=== PATIENT | male | born 1965 | race Caucasian/White ===

== ENCOUNTER 2017-04-01 14:00 | Emergency (ER) | payer BC ==
[2017-04-01 15:54] VITALS: BP 160/101
--- NOTE | 2017-04-01 15:54 | UC ---
Ear Complaint HPI - HPI Summary HPI Summary: 52 year old patient with history of HIV presents with ear pain. Here w/ LEFT earache x2 days. Denies drainage. States it feels clogged, and feels better "when I chew gum". Also states "I've been hot and cold" when asked about fever/ chills. Taking tylenol prn w/ some pain relief. No recent swimming or travel or exposure to illness but daughter has bronchitis at this time and finished antibiotics. [ End ] - History of Current Complaint Chief Complaint: UCEar Stated Complaint: EAR PAIN Time Seen by Provider: 04/01/17 15:52 Hx Obtained From: Patient Onset/Duration: Gradual Onset Severity Initially: Moderate Associated Signs/Symptoms: Positive: Hearing Loss, URI Symptoms. Negative: Discharge, Foreign Body Sensation - Allergies/Home Medications Allergies/Adverse Reactions: Allergies Allergy/AdvReac Type Severity Reaction Status Date / Time Shellfish Allergy Allergy Anaphylatic Verified 04/01/17 15:38 Shock Morphine AdvReac Intermediate Vomiting Verified 04/01/17 15:38 Home Medications: Home Medications RX: Ymqgedodthvd-Usfjzvhhgb-Obpppk [Genvoya [id number] mg] 1 tab QPM [History Confirmed 04/01/17] RX: Mirtazapine TAB* [Remeron TAB*] 15 mg BEDTIME 04/01/17 [History Confirmed ] RX: QUEtiapine TAB* [Seroquel TAB*] 100 mg PO BEDTIME 04/01/17 [History Confirmed 04/01/17] RX: busPIRone TAB* [Buspar TAB*] 30 mg TID 04/01/17 [History Confirmed 04/01/17] RX: cloNIDine TAB* [Catapres 0.1 MG TAB*] 0.1 mg PO TID 04/01/17 [History Confirmed 04/01/17] PMH/Surg Hx/FS Hx/Imm Hx Previously Healthy: Yes Cardiovascular History: Hypertension Psychological History: Anxiety, Depression Other History Of: HIV - Surgical History Surgical History: Yes Surgery Procedure, Year, and Place: R shoulder repair - Family History Known Family History: Negative: Cardiac Disease - Social History Occupation: Employed Full-time - Professor at [employer] Psych Lives: With Family Alcohol Use: None Substance Use Type: None Smoking Status (MU): Never Smoked Tobacco - Immunization History Most Recent Influenza Vaccination: NONE 2016 Review of Systems ENT: Ear Ache All Other Systems Reviewed And Are Negative: Yes Physical Exam Triage Information Reviewed: Yes Appearance: Well-Appearing, No Pain Distress, Well-Nourished Vital Signs: Initial Vital Signs Temp 99.4 F 04/01/17 15:41 Pulse 87 04/01/17 15:41 Resp 16 04/01/17 15:41 BP 160/101 04/01/17 15:41 Pulse Ox 99 04/01/17 15:41 Vital Signs Reviewed: Yes Eye Exam: Normal ENT Exam: Normal ENT: Positive: TM bulging, TM dull Dental Exam: Normal Neck exam: Normal Neck: Positive: 1 Respiratory Exam: Normal Cardiovascular Exam: Normal Musculoskeletal Exam: Normal Neurological Exam: Normal Psychological Exam: Normal Skin Exam: Normal Ear Complaint Course/Dx - Course Course Of Treatment: No acute concerns in the exam but with the ear pressure and pain will offer drops with hydrocortisone to help with pressure/pain/itch and if Sx persist or worsen then go to ED. - Differential Dx/Diagnosis Differential Diagnosis/HQI/PQRI: Otitis Externa, Otitis Media, Perforated TM, URI Provider Diagnoses: Serous effusion with otalgia Discharge - Discharge Plan Condition: Good Disposition: HOME Prescriptions: Neomyc/Polym/HC 1% OTIC SUSP* [Cortisporin Otic Susp 1%*] 4 drop LEFT EAR TID # 1 btl Patient Education Materials: Earache (ED) Referrals: Alberto ESPAÑA,Roman Mistry [Medical Doctor] - 3 Days
== END 2017-04-01 16:26 | disposition home or self-care (01) ==
LOC: UCCORT 14:00
DX: H65.02 Acute serous otitis media, left ear (principal); Z88.5 Allergy status to narcotic agent; F41.8 Other specified anxiety disorders
CPT/HCPCS: 99212; G0463

== ENCOUNTER 2017-07-23 09:05 | Emergency (ER) | payer BC ==
[2017-07-23 09:54] VITALS: BP 154/87
--- NOTE | 2017-07-23 10:19 | ED ---
Respiratory - HPI Summary HPI Summary: 52 yr male with the complaint of frontal sinus congestion, coughing, onset of symptoms three days ago. Denies fever, chills. The patient denies SOB, CP. He has a history of HIV infection. He has no other complaints. - History of Current Complaint Chief Complaint: UCRespiratory Stated Complaint: COUGH Time Seen by Provider: 07/23/17 09:55 - Allergy/Home Medications Allergies/Adverse Reactions: Allergies Allergy/AdvReac Type Severity Reaction Status Date / Time Shellfish Allergy Allergy Anaphylatic Verified 07/23/17 09:43 Shock Morphine AdvReac Intermediate Vomiting Verified 07/23/17 09:43 Home Medications: Home Medications Clonazepam 0.5 mg PO TID 07/23/17 [History Confirmed 07/23/17] Prazosin CAP* [Minipress CAP*] 1 mg PO DAILY 07/23/17 [History Confirmed ] PMH/Surg Hx/FS Hx/Imm Hx Previously Healthy: No - History of HIV infection - Surgical History Surgery Procedure, Year, and Place: R shoulder repair Infectious Disease History: Yes Infectious Disease History: Reports: Hx Human Immunodeficiency Virus (HIV) Denies: Traveled Outside the [place] in Last 30 Days - Family History Known Family History: Positive: None Negative: Cardiac Disease - Social History Occupation: Employed Full-time Alcohol Use: None Substance Use Type: Reports: None Smoking Status (MU): Never Smoked Tobacco Review of Systems Constitutional: Negative Positive: Other - sinus pressure Positive: Cough All Other Systems Reviewed And Are Negative: Yes Physical Exam Triage Information Reviewed: Yes Vital Signs On Initial Exam: Initial Vitals Temp Pulse Resp BP Pulse Ox 99.3 F 97 18 154/87 98 07/23/17 09:48 07/23/17 09:48 07/23/17 09:48 07/23/17 09:48 07/23/17 09:48 Vital Signs Reviewed: Yes Appearance: Positive: Well-Appearing, No Pain Distress Skin: Positive: Warm, Skin Color Reflects Adequate Perfusion Head/Face: Positive: Normal Head/Face Inspection Eyes: Positive: EOMI ENT: Positive: Nasal congestion, Nasal drainage, TMs normal, Sinus tenderness - frontal Respiratory/Lung Sounds: Positive: Clear to Auscultation, Breath Sounds Present Cardiovascular: Positive: RRR. Negative: Murmur Abdomen Description: Positive: Nontender Musculoskeletal: Positive: Strength/ROM Intact Neurological: Positive: Sensory/Motor Intact, Alert, Oriented to Person Place, Time, CN Intact II-III Psychiatric: Positive: Normal - Lyons Coma Scale Best Eye Response: 4 - Spontaneous Best Motor Response: 6 - Obeys Commands Best Verbal Response: 5 - Oriented Diagnostics - Vital Signs Vital Signs Temp Pulse Resp BP Pulse Ox 07/23/17 09:48 99.3 F 97 18 154/87 98 - Laboratory Lab Statement: Any lab studies that have been ordered have been reviewed, and results considered in the medical decision making process. Disposition - Course Course Of Treatment: 52 yr old with sinus pressure, and coughing. Will Rx with bactrim DS to cover the sinuses, and albuterol mdi for cough relief. He does not like augmentin as it upsets his stomach and diarrhea. - Diagnoses Provider Diagnoses: Sinusitis, Cough, Hypertension Discharge - Discharge Plan Condition: Good Disposition: HOME Prescriptions: Albuterol HFA INHALER* [Ventolin HFA Inhaler*] 1 - 2 puff INH Q6H PRN #1 mdi PRN Reason: Cough Sulfamethox/Trimethoprim DS* [Bactrim DS 800/160 TAB*] 1 tab PO BID #20 tab Patient Education Materials: Sinusitis (ED), Acute Bronchitis (ED), Hypertension (ED) Referrals: Non Staff,Doctor [Primary Care Provider] - [facility] [Outside]
--- NOTE | 2017-07-23 10:32 | RAD ---
Indication: Chest pain. 2 views of the chest including dual energy PA views demonstrates no mediastinal shift. Heart is of normal size and configuration. Lung acosta are clear. No significant change is noted since November 11, 2014. IMPRESSION: No active cardiopulmonary disease is noted.
== END 2017-07-23 10:54 | disposition home or self-care (01) ==
LOC: UCCORT 09:05
DX: J32.9 Chronic sinusitis, unspecified (principal); R05 Cough; I10 Essential (primary) hypertension; Z88.5 Allergy status to narcotic agent; Z91.013 Allergy to seafood; Z79.899 Other long term (current) drug therapy
CPT/HCPCS: 71046; 87502; 99212; G0463

== ENCOUNTER 2019-01-06 11:20 | Emergency (ER) | payer BC, OTHER ==
[2019-01-06 12:58] VITALS: BP 120/90
--- NOTE | 2019-01-06 12:59 | UC ---
Lower Extremity/Ankle HPI - HPI Summary HPI Summary: Patient was using a weed eater when something flew out of it and struck the medial aspect of his left leg. there is alot of swelling but no bruising or open areas, his leg was normal prior to the incident - History of Current Complaint Stated Complaint: RIGHT LEG INJURY Time Seen by Provider: 01/06/19 12:38 Hx Obtained From: Patient Onset/Duration: Sudden Onset, Lasting Hours Severity Initially: Moderate Severity Currently: Moderate Aggravating Factor(s): Standing, Ambulation Alleviating Factor(s): Rest Able to Bear Weight: Yes - Allergies/Home Medications Allergies/Adverse Reactions: Allergies Allergy/AdvReac Type Severity Reaction Status Date / Time MS Shellfish Allergy Allergy Anaphylatic Verified 07/23/17 09:43 [Shellfish Allergy] Shock MS Morphine [Morphine] AdvReac Intermediate Vomiting Verified 07/23/17 09:43 PMH/Surg Hx/FS Hx/Imm Hx Previously Healthy: Yes Other History Of: HIV - Surgical History Surgical History: Yes Surgery Procedure, Year, and Place: R shoulder repair - Family History Known Family History: Positive: None Negative: Cardiac Disease - Social History Alcohol Use: None Substance Use Type: None Smoking Status (MU): Never Smoked Tobacco - Immunization History Most Recent Influenza Vaccination: NONE 2016 Review of Systems All Other Systems Reviewed And Are Negative: Yes Musculoskeletal: Positive: Decreased ROM, Edema, Myalgia Is Patient Immunocompromised?: No Physical Exam Triage Information Reviewed: Yes Appearance: Well-Appearing, Well-Nourished, Pain Distress Vital Signs Reviewed: Yes Eye Exam: Normal ENT Exam: Normal Dental Exam: Normal Neck exam: Normal Neck: Positive: 1 Respiratory Exam: Normal Cardiovascular Exam: Normal Abdominal Exam: Normal Musculoskeletal: Positive: Strength Limited @ - hard to push off when walking, ROM Limited @ - due to pain and swelling, Edema @ - over the medial gastroc, anterior of lower leg remains unswollen and non tender. medial gastroc is swollen, sore, no brusing noted, no abrasion or open are of sking Neurological Exam: Normal Psychological Exam: Normal Skin Exam: Normal Lower Extremity Course/Dx - Course Course Of Treatment: hx obtained, exam performed ,meds reviewed, treated for contusion - Differential Dx/Diagnosis Differential Diagnosis/HQI/PQRI: Cellulitis, Compartment Syndrome, Contusion, Fracture (Closed), Infection, Sprain, Strain Provider Diagnosis: Contusion of left lower leg, initial encounter Discharge - Sign-Out/Discharge Documenting (check all that apply): Patient Departure All imaging exams completed and their final reports reviewed: No Studies - Discharge Plan Condition: Stable Disposition: HOME Patient Education Materials: Contusion in Adults (ED) Referrals: Star Long MD [Primary Care Provider] - Additional Instructions: 1. compress, elevate the leg 2. Pump the foot to help promote movement of fluid 3. Ibuprofen for swelling and pain 4. Expect some bruising in the next few days 5. Follow up with any increased redness, swelling or pain. - Billing Disposition and Condition Condition: STABLE Disposition: Home
== END 2019-01-06 13:20 | disposition home or self-care (01) ==
LOC: UCCORT 11:20
DX: S80.12XA Contusion of left lower leg, initial encounter (principal); W20.8XXA Other cause of strike by thrown, projected or falling object, initial encounter; Y93.H2 Activity, gardening and landscaping; Y92.9 Unspecified place or not applicable; Z21 Asymptomatic human immunodeficiency virus [HIV] infection status
CPT/HCPCS: 99212; G0463